=== PATIENT | female | born 1970 | race Caucasian/White ===

== ENCOUNTER → 2021-06-26 | Day surgery (SDC) | payer BC ==
[~2021-06-26] MED LIST: AMIT50TA PO; HYDR30CR74 TP; LEVO88TA4 PO; SUMA50TA4 PO
[2021-06-26 12:32] VITALS: BP 115/56
== END | disposition home or self-care (01) ==
LOC: SURG 12:19
PROVIDERS: ATTEND Anesthesiology
DX: M54.12 Radiculopathy, cervical region (principal); M50.30 Other cervical disc degeneration, unspecified cervical region; M51.34 Other intervertebral disc degeneration, thoracic region; M79.18 Myalgia, other site; J45.909 Unspecified asthma, uncomplicated; F32.9 Major depressive disorder, single episode, unspecified; Z79.899 Other long term (current) drug therapy; Z88.8 Allergy status to other drugs, medicaments and biological substances; Z88.2 Allergy status to sulfonamides; Z88.0 Allergy status to penicillin; Z88.5 Allergy status to narcotic agent
CPT/HCPCS: 99204; G0463